=== PATIENT | female | born 1955 | race Caucasian/White ===

== ENCOUNTER → 2016-10-17 | Outpatient (CLI) | payer OTHER | END | disposition home or self-care (01) | LOC: NUC 11:41 | DX: R10.13 Epigastric pain (principal) | CPT/HCPCS: 78227; A9537; J2805 ==

== ENCOUNTER 2017-04-08 17:59 | Observation (INO) | payer OTHER ==
[~2017-04-08] VITALS: Ht 170.2 cm; Wt 73.6 kg
[2017-04-08 19:04] LABS: HEMATOCRIT 43.9 % (36.0-46.0); MCH 31.5 PG (29.0-34.0); MCHC 33.5 G/DL (30.0-36.0); MEAN PLAT.VOLUME 10.3 uM^3 (9.5-12.4); PLATELET COUNT 267 K/uL (156-360); RBC DIS.WIDTH-CV 14.2 % (11.8-14.6); RBC DIS.WIDTH-SD 49.1 % (39-53); RED BLOOD COUNT 4.67 M/uL (3.80-5.20); WHITE BLOOD COUNT 15.4 K/uL (4.1-10.2)
[2017-04-08 19:11] LABS: CHLORIDE 106 mEq/L (99-109); POTASSIUM 4.1 mEq/L (3.7-5.4); SODIUM 141 mEq/L (136-147)
[2017-04-08 19:13] LABS: GLUCOSE 101 mg/dL (70-99)
[2017-04-08 19:15] LABS: ANION GAP 9 MEQ/L (2-14)
[2017-04-08 19:17] LABS: GFR ESTIMATE (CALCULATED) 53 mL/min/
[2017-04-08 19:18] LABS: UREA NITROGEN (BUN) 20 mg/dL (9-23)
[2017-04-08] MEDS ORDERED: OXYCODONE HCL10 MG PO (23:17)
[2017-04-08] MEDS ORDERED: SPIRIVA RESPIMAT4 GM IH (23:18)
[2017-04-08] MEDS ORDERED: BREO ELLIPTA I1 EACH IH (23:18)
[2017-04-08] MEDS ORDERED: ERGOCALCIF50000 UNIT PO (23:19)
[2017-04-08] MEDS ORDERED: NEXIUM40 MG PO (23:20)
[2017-04-08] MEDS ORDERED: PREDNISONE10 MG PO (23:22)
[2017-04-08] MEDS ORDERED: PROAIR HFA8.5 GM IH (23:23)
[2017-04-08] MEDS ORDERED: CYANOCOBAL1000 MCG/2 IM (23:24)
[2017-04-09 01:22] VITALS: BP 118/76
[2017-04-09 06:29] LABS: HEMATOCRIT 43.4 % (36.0-46.0); MCH 30.4 PG (29.0-34.0); MCHC 32.7 G/DL (30.0-36.0); MCV 92.9 FL (83-99); MEAN PLAT.VOLUME 10.5 uM^3 (9.5-12.4); PLATELET COUNT 240 K/uL (156-360); RBC DIS.WIDTH-CV 14.1 % (11.8-14.6); RBC DIS.WIDTH-SD 48.6 % (39-53); RED BLOOD COUNT 4.67 M/uL (3.80-5.20); WHITE BLOOD COUNT 13.7 K/uL (4.1-10.2)
[2017-04-09 07:06] LABS: Estimated Average Glucose 123 mg/dL (70-123); HEMOGLOBIN A1c (GLYCOHEMOGLOB) 5.9 % HGB (Below 5.7)
[2017-04-09 07:12] LABS: HDL CHOLESTEROL 51 MG/DL (Desirable>=50); LDL CHOLESTEROL 130 mg/dL (Desirable<100); NON-HDL CHOLESTEROL 150 mg/dL (Desirable<160); TOTAL CHOLESTEROL 201 mg/dL (Desirable<200); TRIGLYCERIDES 101 MG/DL (Normal: <150)
[2017-04-09 07:46] VITALS: BP 126/77
[2017-04-09 11:55] LABS: ERTH.SED.RATE 8 MM/HR (0-30)
[2017-04-09] MEDS ORDERED: AMOX TR-K CLV1 EAC4 PO (15:03)
[2017-04-09 15:33] VITALS: BP 128/73
== END 2017-04-09 16:18 | disposition home or self-care (01) ==
LOC: EME 17:59 → 5SOUTH 23:31 → EDOF 23:31 → ENRESERV 23:33 → 5SOUTH 04-09 01:11
PROVIDERS: Hospitalist
DX: R20.0 Anesthesia of skin (principal); R20.2 Paresthesia of skin; R51 Headache; J01.00 Acute maxillary sinusitis, unspecified; J44.9 Chronic obstructive pulmonary disease, unspecified; E04.1 Nontoxic single thyroid nodule; G62.9 Polyneuropathy, unspecified; M54.12 Radiculopathy, cervical region; F17.210 Nicotine dependence, cigarettes, uncomplicated; Z85.3 Personal history of malignant neoplasm of breast; M79.7 Fibromyalgia; I89.0 Lymphedema, not elsewhere classified; Z92.21 Personal history of antineoplastic chemotherapy; Z90.49 Acquired absence of other specified parts of digestive tract; Z82.49 Family history of ischemic heart disease and other diseases of the circulatory system
CPT/HCPCS: 70450; 70551; 71020; 80048; 80061; 83036; 85027; 85651; 93005; 93880; 94640; 99202; 99281; 99285; G0378; J1644; J7512

== ENCOUNTER → 2017-04-26 | Outpatient (CLI) | payer OTHER ==
[~2017-04-26] MED LIST: AMOX TR-K CLV1 EAC4 PO; BREO ELLIPTA I1 EACH IH; CYANOCOBAL1000 MCG/2 IM; ERGOCALCIF50000 UNIT PO; NEXIUM40 MG PO; OXYCODONE HCL10 MG PO; PREDNISONE10 MG PO; PROAIR HFA8.5 GM IH; SPIRIVA RESPIMAT4 GM IH
== END | disposition home or self-care (01) ==
LOC: RAD 08:22
DX: E04.1 Nontoxic single thyroid nodule (principal); J43.9 Emphysema, unspecified; I65.23 Occlusion and stenosis of bilateral carotid arteries; R47.02 Dysphasia; R49.0 Dysphonia; R63.4 Abnormal weight loss; H57.8 Other specified disorders of eye and adnexa; G51.9 Disorder of facial nerve, unspecified; R13.10 Dysphagia, unspecified; Z85.3 Personal history of malignant neoplasm of breast
CPT/HCPCS: 70470; 70487; 70491

== ENCOUNTER → 2017-07-11 | Outpatient (CLI) | payer OTHER | END | disposition home or self-care (01) | DX: R13.10 Dysphagia, unspecified (principal) | CPT/HCPCS: 92611 GN; G8996 GN; G8997 GN; G8998 GN ==